=== PATIENT | female | born 1990 | race African-American/Black ===

== ENCOUNTER 2016-05-17 13:42 | Emergency (ER) | payer SELFPAY ==
[~2016-05-17] VITALS: Ht 157.5 cm; Wt 53.8 kg
[~2016-05-17 13:42] MED LIST: ABREVA2 GM TP; CHERATUSSIN AC473 ML PO; NAPROSYN500 MG PO
[2016-05-17 14:21] LABS: ADD MIUA? NO; BILIRUBIN NEGATIVE; BLOOD NEGATIVE; COLOR YELLOW ((YELLOW)); GLUCOSE (STRIP) NEGATIVE; KETONES NEGATIVE; LEUKOCYTES NEGATIVE; NITRITE NEGATIVE; PROTEIN (STRIP) NEGATIVE; UROBILINOGEN 0.2 MG/DL (0.2-1.0)
[2016-05-17 14:22] LABS: INTERNAL CONTROL VALID? YES
[2016-05-17] MEDS ORDERED: ZOFRAN ODT4 MG PO (15:07)
[2016-05-17 15:21] VITALS: BP 140/81
== END 2016-05-17 15:22 | disposition home or self-care (01) ==
LOC: EME 13:42
PROVIDERS: Physician Assistant
DX: B34.9 Viral infection, unspecified (principal)
CPT/HCPCS: 81003; 84703; 99281; 99284

== ENCOUNTER 2016-10-19 16:31 | Emergency (ER) | payer SELFPAY ==
[~2016-10-19] VITALS: Ht 154.9 cm; Wt 51.0 kg
[~2016-10-19 16:31] MED LIST changes: +ZOFRAN ODT4 MG PO
[2016-10-19] MEDS ORDERED: COLACE100 MG PO (18:34)
[2016-10-19] MEDS ORDERED: BENTYL10 MG PO (18:34)
[2016-10-19] MEDS ORDERED: AMOXICILLIN875 MG PO (18:34)
[2016-10-19 18:52] VITALS: BP 121/95
== END 2016-10-19 18:53 | disposition home or self-care (01) ==
LOC: EME 16:31
DX: K08.89 Other specified disorders of teeth and supporting structures (principal); J02.9 Acute pharyngitis, unspecified; K59.00 Constipation, unspecified
CPT/HCPCS: 99281; 99283

== ENCOUNTER 2017-01-17 08:33 | Emergency (ER) | payer SELFPAY ==
[~2017-01-17] VITALS: Ht 154.9 cm; Wt 54.0 kg
[~2017-01-17 08:33] MED LIST changes: +AMOXICILLIN875 MG PO; +BENTYL10 MG PO; +COLACE100 MG PO
[2017-01-17 08:51] LABS: HEMATOCRIT 41.3 % (36.0-46.0); MCH 29.1 PG (29.0-34.0); MCHC 32.9 G/DL (30.0-36.0); MCV 88.4 FL (83-99); MEAN PLAT.VOLUME 9.4 uM^3 (9.5-12.4); PLATELET COUNT 177 K/uL (156-360); RBC DIS.WIDTH-CV 11.9 % (11.8-14.6); RBC DIS.WIDTH-SD 38.5 % (39-53); RED BLOOD COUNT 4.67 M/uL (3.80-5.20); WHITE BLOOD COUNT 5.5 K/uL (4.1-10.2)
[2017-01-17 08:59] LABS: CHLORIDE 107 mEq/L (99-109)
[2017-01-17 09:00] LABS: SODIUM 138 mEq/L (136-147)
[2017-01-17 09:02] LABS: GLUCOSE 98 mg/dL (70-99)
[2017-01-17 09:03] LABS: ANION GAP 10 MEQ/L (2-14)
[2017-01-17 09:04] LABS: TOTAL BILIRUBIN 0.4 mg/dL (0.0-1.0)
[2017-01-17 09:05] LABS: ALKALINE PHOSPHATASE 50 IU/L (3-129); GFR ESTIMATE (CALCULATED) > 59 mL/min/
[2017-01-17 09:07] LABS: UREA NITROGEN (BUN) 16 mg/dL (9-23)
[2017-01-17 09:09] LABS: LIPASE 37 U/L (1.0-51.0)
[2017-01-17 09:15] LABS: QUANTITATIVE HCG < 4.0 MIU/ML
[2017-01-17 09:18] LABS: ADD MIUA? NO; BILIRUBIN NEGATIVE; BLOOD NEGATIVE; COLOR YELLOW ((YELLOW)); GLUCOSE (STRIP) NEGATIVE; KETONES NEGATIVE; LEUKOCYTES NEGATIVE; NITRITE NEGATIVE; PROTEIN (STRIP) NEGATIVE; SPECIFIC GRAVITY 1.021 (1.000-1.030); UROBILINOGEN 0.2 MG/DL (0.2-1.0)
[2017-01-17] MEDS ORDERED: BENTYL10 MG PO (09:23)
[2017-01-17] MEDS ORDERED: ZOFRAN ODT4 MG PO (09:24)
[2017-01-17 09:54] VITALS: BP 127/84
== END 2017-01-17 09:54 | disposition home or self-care (01) ==
LOC: EME 08:33
PROVIDERS: Nurse Practitioner Family
DX: B34.9 Viral infection, unspecified (principal); R10.9 Unspecified abdominal pain
CPT/HCPCS: 80053; 81003; 83690; 84702; 85027; 99281; 99284

== ENCOUNTER 2017-04-13 15:04 | Emergency (ER) | payer SELFPAY ==
[~2017-04-13] VITALS: Ht 154.9 cm; Wt 54.0 kg
[2017-04-13] MEDS ORDERED: ZITHROMAX Z-PA250 MG PO (15:42)
[2017-04-13] MEDS ORDERED: ROBITUSSIN AC,T10 ML PO (15:42)
[2017-04-13 15:47] VITALS: BP 141/81
== END 2017-04-13 16:07 | disposition home or self-care (01) ==
LOC: EME 15:04
DX: J40 Bronchitis, not specified as acute or chronic (principal)
CPT/HCPCS: 71046; 87502; J8540

== ENCOUNTER 2017-08-09 17:52 | Emergency (ER) | payer OTHER ==
[~2017-08-09] VITALS: Ht 154.9 cm; Wt 51.7 kg
[~2017-08-09 17:52] MED LIST changes: +ROBITUSSIN AC,T10 ML PO; +ZITHROMAX Z-PA250 MG PO
[2017-08-09 19:33] LABS: SOURCE SWAB
[2017-08-09 19:58] LABS: APPEARANCE CLOUDY ((CLEAR)); BILIRUBIN NEGATIVE; BLOOD NEGATIVE; COLOR YELLOW ((YELLOW)); GLUCOSE (STRIP) NEGATIVE; KETONES 80; LEUKOCYTES TRACE; NITRITE NEGATIVE; PROTEIN (STRIP) 30; SPECIFIC GRAVITY 1.032 (1.000-1.030)
[2017-08-09 20:08] LABS: BACTERIA NONE SEEN /HPF; EPITHELIAL CELLS 4+ /HPF; MUCUS 4+ /LPF; UCUL ADDED? NO; WHITE BLOOD CELLS 0-5 /HPF (0-5)
[2017-08-09 20:44] VITALS: BP 119/83
== END 2017-08-09 20:45 | disposition home or self-care (01) ==
LOC: EME 17:52
PROVIDERS: Physician Assistant
DX: R10.30 Lower abdominal pain, unspecified (principal); Z20.2 Contact with and (suspected) exposure to infections with a predominantly sexual mode of transmission; Z88.6 Allergy status to analgesic agent
CPT/HCPCS: 81003; 84702; 87210; 87491; 87591; 99281; 99284; J0696

== ENCOUNTER 2017-10-15 11:27 | Emergency (ER) | payer SELFPAY ==
[~2017-10-15] VITALS: Ht 154.9 cm; Wt 47.9 kg
[2017-10-15 12:48] LABS: APPEARANCE CLEAR ((CLEAR)); BILIRUBIN NEGATIVE; BLOOD NEGATIVE; COLOR YELLOW ((YELLOW)); GLUCOSE (STRIP) NEGATIVE; KETONES NEGATIVE; LEUKOCYTES NEGATIVE; NITRITE NEGATIVE; PROTEIN (STRIP) 30; SPECIFIC GRAVITY 1.027 (1.000-1.030); UROBILINOGEN 0.2 MG/DL (0.2-1.0)
[2017-10-15 13:10] LABS: HEMOGLOBIN 13.4 G/DL (11.9-15.5); MCH 29.4 PG (29.0-34.0); MCHC 34.4 G/DL (30.0-36.0); MCV 85.5 FL (83-99); PLATELET COUNT 154 K/uL (156-360); RBC DIS.WIDTH-CV 11.7 % (11.8-14.6); RBC DIS.WIDTH-SD 36.5 % (39-53); RED BLOOD COUNT 4.56 M/uL (3.80-5.20); WHITE BLOOD COUNT 5.1 K/uL (4.1-10.2)
[2017-10-15 13:20] LABS: ALBUMIN 4.2 g/dL (3.2-4.8)
[2017-10-15 13:21] LABS: CHLORIDE 110 mEq/L (99-109); POTASSIUM 3.9 mEq/L (3.7-5.4); SODIUM 140 mEq/L (136-147)
[2017-10-15 13:23] LABS: GLUCOSE 95 mg/dL (70-99)
[2017-10-15 13:25] LABS: TOTAL BILIRUBIN 0.5 mg/dL (0.0-1.0)
[2017-10-15 13:27] LABS: ALKALINE PHOSPHATASE 40 IU/L (3-129); CREATININE 0.9 mg/dL (0.6-1.3); GFR ESTIMATE (CALCULATED) > 59 mL/min/
[2017-10-15 13:28] LABS: AST (GOT) 16 IU/L (2-34); DIRECT BILIRUBIN 0.2 mg/dL (0.0-0.3); UREA NITROGEN (BUN) 16 mg/dL (9-23)
[2017-10-15 13:30] LABS: ALT (GPT) 11 IU/L (3-49); LIPASE 21 U/L (1.0-51.0)
[2017-10-15] MEDS ORDERED: ZOFRAN ODT8 MG PO (13:43)
[2017-10-15] MEDS ORDERED: BENTYL20 MG PO (13:43)
[2017-10-15 13:54] VITALS: BP 119/76
== END 2017-10-15 13:56 | disposition home or self-care (01) ==
LOC: EME 11:27
PROVIDERS: Physician Assistant
DX: R10.30 Lower abdominal pain, unspecified (principal); R11.2 Nausea with vomiting, unspecified; R19.7 Diarrhea, unspecified; E86.0 Dehydration; R51 Headache
CPT/HCPCS: 80048; 80076; 81003; 81025; 83690; 85027; 99281; 99284; J0500